=== PATIENT | female | born 1995 | race African-American/Black ===

== ENCOUNTER 2018-10-25 23:45 | Emergency (ER) | payer OTHER ==
[~2018-10-25] VITALS: Ht 152.4 cm; Wt 56.8 kg
[2018-10-25] MEDS ORDERED: HYDRO50TAB PO (23:55)
[2018-10-26] MEDS ORDERED: diphenhydrAMINE 25 MG CAP PO ONE (00:30)
[2018-10-26] MEDS ORDERED: ONDANSETRON 4 MG ORAL DISINTEGRATING TAB (Q0162 PER 1MG) PO ONE (00:30)
[2018-10-26 01:09] VITALS: BP 105/59
== END 2018-10-26 01:11 | disposition home or self-care (01) ==
LOC: M ED 23:45
DX: F10.120 Alcohol abuse with intoxication, uncomplicated (principal); R11.2 Nausea with vomiting, unspecified; F32.9 Major depressive disorder, single episode, unspecified; F41.9 Anxiety disorder, unspecified; Z77.098 Contact with and (suspected) exposure to other hazardous, chiefly nonmedicinal, chemicals
CPT/HCPCS: 99283; Q0162

== ENCOUNTER 2018-11-05 03:34 | Emergency (ER) | payer OTHER ==
[~2018-11-05] VITALS: Ht 152.4 cm; Wt 54.0 kg
[~2018-11-05 03:34] MED LIST: HYDRO50TAB PO
[2018-11-05] MEDS ORDERED: LEXA1TAB PO (03:40)
[2018-11-05] MEDS ORDERED: ONDANSETRON 4 MG ORAL DISINTEGRATING TAB (Q0162 PER 1MG) PO ONE (04:45)
[2018-11-05 06:43] VITALS: BP 99/57
[2018-11-05] MEDS ORDERED: IBUPROFEN 600 MG TAB PO ONE (06:45)
[2018-11-05 06:47] LABS: AMORPHOUS SEDIMENT SMALL (NEGATIVE); APPEARANCE, URINE HAZY (CLEAR); BACTERIA, URINE AUTO 1+ (NEGATIVE); BILIRUBIN, URINE AUTO NEGATIVE (NEGATIVE); BLOOD, URINE BLOOD NEGATIVE (NEGATIVE); COLOR, URINE YELLOW (YELLOW); GLUCOSE, URINE (UA) AUTO NEGATIVE (NEGATIVE); KETONE, URINE AUTO 1+ mg/dL (NEGATIVE); LEUKOCYTE ESTERASE, URINE AUTO NEGATIVE (NEGATIVE); MUCUS, URINE SMALL (NEGATIVE); NITRITE, URINE AUTO NEGATIVE (NEGATIVE); PROTEIN, URINE AUTO NEGATIVE (NEGATIVE); RBC, URINE AUTO 2 /HPF (0-3); SPECIFIC GRAVITY URINE AUTO 1.024 (1.002-1.035); SQUAMOUS EPITHELIAL CELL UR AU 2 /HPF (0-6); WBC, URINE AUTO 2 /HPF (0-3)
== END 2018-11-05 06:46 | disposition home or self-care (01) ==
LOC: M ED 03:34
DX: F10.229 Alcohol dependence with intoxication, unspecified (principal); F33.9 Major depressive disorder, recurrent, unspecified; F41.9 Anxiety disorder, unspecified; Z79.899 Other long term (current) drug therapy; Z91.011 Allergy to milk products; J30.89 Other allergic rhinitis; Z77.098 Contact with and (suspected) exposure to other hazardous, chiefly nonmedicinal, chemicals
CPT/HCPCS: 81001; 81025; 99284; Q0162

== ENCOUNTER 2018-11-10 01:14 | Emergency (ER) | payer OTHER ==
[~2018-11-10] VITALS: Ht 152.4 cm; Wt 56.8 kg
[~2018-11-10 01:14] MED LIST changes: +LEXA1TAB PO
[2018-11-10 03:03] VITALS: BP 112/64
--- NOTE | 2018-11-10 08:05 | REP ---
Right hand series: Four views. History: Right hand pain. Trauma. Findings: Four views of the right hand show overall normal mineralization. There is no evidence of fracture or subluxation. No opaque foreign body seen. Impression: Negative right hand radiographs. Electronically Signed by Tu Linn MD 11/10/2018 07:56 A
== END 2018-11-10 03:04 | disposition home or self-care (01) ==
LOC: M ED 01:14
DX: S60.221A Contusion of right hand, initial encounter (principal); W19.XXXA Unspecified fall, initial encounter; Y92.410 Unspecified street and highway as the place of occurrence of the external cause; Y93.9 Activity, unspecified; Y99.9 Unspecified external cause status; F32.9 Major depressive disorder, single episode, unspecified; J30.89 Other allergic rhinitis; Z79.899 Other long term (current) drug therapy; Z91.011 Allergy to milk products

== ENCOUNTER 2018-11-14 10:08 | Emergency (ER) | payer OTHER ==
[~2018-11-14] VITALS: Ht 152.4 cm; Wt 56.8 kg
[2018-11-14 10:18] VITALS: BP 129/81
== END 2018-11-14 12:41 | disposition home or self-care (01) ==
LOC: M ED 10:08
DX: F43.0 Acute stress reaction (principal); F32.9 Major depressive disorder, single episode, unspecified; K21.9 Gastro-esophageal reflux disease without esophagitis; J30.89 Other allergic rhinitis; Z72.0 Tobacco use; Z79.899 Other long term (current) drug therapy; Z91.011 Allergy to milk products

== ENCOUNTER 2019-04-22 17:38 | Emergency (ER) | payer OTHER ==
[~2019-04-22] VITALS: Ht 152.4 cm; Wt 58.7 kg
[~2019-04-22 17:38] MED LIST changes: +HYDR1TAB33 PO; -HYDRO50TAB PO
[2019-04-22] MEDS ORDERED: IBUP-1022 PO (18:24)
[2019-04-22] MEDS ORDERED: ONDANSETRON 4 MG ORAL DISINTEGRATING TAB (Q0162 PER 1MG) PO ONE (18:45)
[2019-04-22 18:52] LABS: BASO % 0.3 % (0.0-1.0); EOS # 0.1 10^3/uL (0.0-0.5); EOS % 0.7 % (0.0-3.0); HEMATOCRIT 40.6 % (36.0-47.0); HEMOGLOBIN 14.1 g/dl (12.0-15.5); LYMPH # 1.3 10^3/uL (1.5-5.0); LYMPH % 13.3 % (24.0-44.0); MEAN CORPUSCULAR HEMOGLOBIN 32.7 pg (27.0-33.0); MEAN CORPUSCULAR HGB CONC 34.7 g/dl (32.0-36.5); MEAN CORPUSCULAR VOLUME 94.2 fl (80.0-96.0); MONO # 0.4 10^3/uL (0.0-0.8); MONO % 4.5 % (0.0-5.0); NEUTROPHILS # 7.8 10^3/uL (1.5-8.5); NEUTROPHILS % 80.8 % (36.0-66.0); PLATELET COUNT, AUTOMATED 324 10^3/uL (150-450); RED BLOOD COUNT 4.31 10^6/uL (4.00-5.40); WHITE BLOOD COUNT 9.6 10^3/uL (4.0-10.0)
[2019-04-22] MEDS ORDERED: ONDA4TAB6 PO (19:30)
[2019-04-22 19:41] VITALS: BP 125/84
== END 2019-04-22 19:42 | disposition home or self-care (01) ==
LOC: M ED 17:38
DX: R11.2 Nausea with vomiting, unspecified (principal); R53.83 Other fatigue; K21.9 Gastro-esophageal reflux disease without esophagitis; Z91.011 Allergy to milk products
CPT/HCPCS: 80047; 84702; 85025; 99283; Q0162

== ENCOUNTER 2019-06-07 20:21 | Emergency (ER) | payer OTHER ==
[~2019-06-07] VITALS: Ht 152.4 cm; Wt 61.8 kg
[2019-06-07 20:21] VITALS: BP 118/79
[~2019-06-07 20:21] MED LIST changes: +IBUP-1022 PO; +ONDA4TAB6 PO
[2019-06-07] MEDS ORDERED: NORCO, ANEXSIA 5/325MG TABLET (HYDROcodone/ACETAMINOPHEN) PO ONE (21:15)
== END 2019-06-07 21:18 | disposition home or self-care (01) ==
LOC: M ED 20:21
DX: M25.571 Pain in right ankle and joints of right foot (principal); Z91.011 Allergy to milk products; M79.671 Pain in right foot

== ENCOUNTER 2019-11-08 13:39 | Emergency (ER) | payer OTHER ==
[~2019-11-08] VITALS: Ht 182.9 cm; Wt 59.6 kg
[2019-11-08] MEDS ORDERED: ONDANSETRON 4 MG ORAL DISINTEGRATING TAB (Q0162 PER 1MG) PO ONE (14:15)
[2019-11-08] MEDS ORDERED: METOCLOPRAMIDE INJ 10MG/2ML VIAL (J2765) IV ONE (15:15)
[2019-11-08] MEDS ORDERED: NS 1,000 ML IV ONE (15:15)
[2019-11-08 15:42] LABS: BASO % 0.3 % (0.0-1.0); HEMATOCRIT 41.7 % (36.0-47.0); HEMOGLOBIN 13.8 g/dl (12.0-15.5); LYMPH % 10.7 % (24.0-44.0); MEAN CORPUSCULAR HEMOGLOBIN 30.9 pg (27.0-33.0); MEAN CORPUSCULAR HGB CONC 33.1 g/dl (32.0-36.5); MEAN CORPUSCULAR VOLUME 93.5 fl (80.0-96.0); MONO # 0.2 10^3/uL (0.0-0.8); NEUTROPHILS # 7.9 10^3/uL (1.5-8.5); NEUTROPHILS % 86.7 % (36.0-66.0); PLATELET COUNT, AUTOMATED 305 10^3/uL (150-450); RED BLOOD COUNT 4.46 10^6/uL (4.00-5.40); WHITE BLOOD COUNT 9.1 10^3/uL (4.0-10.0)
[2019-11-08] MEDS ORDERED: REGL10TA6 PO (16:34)
[2019-11-08 16:53] VITALS: BP 133/62
== END 2019-11-08 16:54 | disposition home or self-care (01) ==
LOC: M ED 13:39
DX: R11.2 Nausea with vomiting, unspecified (principal); F17.218 Nicotine dependence, cigarettes, with other nicotine-induced disorders; K21.9 Gastro-esophageal reflux disease without esophagitis; Z91.011 Allergy to milk products
CPT/HCPCS: 80047; 84702; 85025; 96361; 96374; 99284; J2765; Q0162